=== PATIENT | male | born 1950 | race Two or more races ===

== ENCOUNTER 2018-03-06 22:09 | Emergency (ER) | payer OTHER ==
[~2018-03-06] VITALS: Ht 175.3 cm; Wt 81.6 kg
[2018-03-06] MEDS ORDERED: LIPITOR20 MG (22:43)
[2018-03-06] MEDS ORDERED: PRILOSEC OTC20 MG (22:44)
== END 2018-03-06 23:35 | disposition home or self-care (01) ==
LOC: ER 22:09
DX: R13.19 Other dysphagia (principal)